=== PATIENT | female | born 1965 | race Caucasian/White ===

== ENCOUNTER 2017-03-03 09:13 | Day surgery (SDC) | payer BC ==
[~2017-03-03] VITALS: Ht 175.3 cm; Wt 99.8 kg
[~2017-03-03 09:13] MED LIST: ABILIFY2 MG PO; COUMADIN,JANTO2.5 MG PO; CYMBALTA30 MG PO; EXFORGE 10/11 TABLET PO; FISH OIL 1,0001 EAC7 PO; FLONASE16 G1 BOTH NARES; LO-DOSE ASPIRIN81 M2 PO; METOPROLOL SUCC50 MG PO; Toprol XL PO; VITAMIN D35000 UNIT PO; WOMEN'S 50 PLU1 EACH PO; ZYRTEC10 M3 PO
[2017-03-03 10:10] LABS: HEMATOCRIT 43.6 % (36.0-46.0)
[2017-03-03 10:23] VITALS: BP 122/58
[2017-03-03 12:07] LABS: INTERNAL CONTROL VALID? YES
[2017-03-03 14:22] VITALS: BP 130/76
[2017-03-03 15:00] VITALS: BP 129/67
== END 2017-03-03 15:19 | disposition home or self-care (01) ==
LOC: SDC 09:13
PROVIDERS: Otolaryngology
PROC: 09BN7ZX Excision of Nasopharynx, Via Natural or Artificial Opening, Diagnostic (ICD-10-PCS; principal; 2017-03-03)
DX: J34.89 Other specified disorders of nose and nasal sinuses (principal); D68.51 Activated protein C resistance; F41.8 Other specified anxiety disorders; I10 Essential (primary) hypertension; G47.30 Sleep apnea, unspecified; E66.9 Obesity, unspecified; Z79.82 Long term (current) use of aspirin; Z86.711 Personal history of pulmonary embolism; Z86.718 Personal history of other venous thrombosis and embolism
CPT/HCPCS: 84703; 85014; 85018; 88305; 88341 TC; 88342 TC; J0330; J1100; J2250; J2405; J3010

== ENCOUNTER 2017-04-02 12:50 | Day surgery (SDC) | payer BC ==
[~2017-04-02] VITALS: Ht 175.3 cm; Wt 98.0 kg
[~2017-04-02 12:50] MED LIST changes: +ERGOCALCIF50000 UNIT PO; -EXFORGE 10/11 TABLET PO; +EXFORGE 5/161 TABLET PO; +POTASSIUM GLUCO99 M1 PO; -VITAMIN D35000 UNIT PO
[2017-04-02 13:19] VITALS: BP 122/66
[2017-04-02] MEDS ORDERED: NORCO 5/3251 TABLET PO (15:30)
[2017-04-02 15:50] VITALS: BP 113/66
[2017-04-02 15:54] VITALS: BP 113/66
[2017-04-02 16:50] VITALS: BP 130/60
== END 2017-04-02 17:00 | disposition home or self-care (01) ==
LOC: SDC
PROC: 0DH63UZ Insertion of Feeding Device into Stomach, Percutaneous Approach (ICD-10-PCS; principal; 2017-04-02)
DX: R13.10 Dysphagia, unspecified (principal); C11.9 Malignant neoplasm of nasopharynx, unspecified; F41.1 Generalized anxiety disorder; F32.9 Major depressive disorder, single episode, unspecified; Z86.72 Personal history of thrombophlebitis; Z86.718 Personal history of other venous thrombosis and embolism; D68.51 Activated protein C resistance; I10 Essential (primary) hypertension; G47.30 Sleep apnea, unspecified; Z79.82 Long term (current) use of aspirin; Z82.49 Family history of ischemic heart disease and other diseases of the circulatory system; Z88.1 Allergy status to other antibiotic agents; Z91.09 Other allergy status, other than to drugs and biological substances
CPT/HCPCS: 93005; J0690; J2250; J2405; J3010